=== PATIENT | female | born 1980 | race Hispanic/Latino ===

== ENCOUNTER 2021-11-16 21:04 | Emergency (ER) | payer OTHER ==
[~2021-11-16] VITALS: Ht 162.6 cm; Wt 63.0 kg
[2021-11-16] MEDS ORDERED: LACTULOSE 20 GM/30 ML UDCUP PO ONE (22:00)
[2021-11-16] MEDS ORDERED: GLYCERIN ADULT SUPP.RECT RC SCH (22:00)
[2021-11-16] MEDS ORDERED: LACT10PA5 PO (23:17)
[2021-11-16] MEDS ORDERED: POLY17PO4 PO (23:17)
[2021-11-16 23:20] VITALS: BP 135/65
== END 2021-11-16 23:31 | disposition home or self-care (01) ==
LOC: EDH 21:04
DX: K59.01 Slow transit constipation (principal); J45.909 Unspecified asthma, uncomplicated; E03.9 Hypothyroidism, unspecified; Z90.49 Acquired absence of other specified parts of digestive tract; Z90.710 Acquired absence of both cervix and uterus; Z98.51 Tubal ligation status

== ENCOUNTER → 2022-04-20 | Outpatient (CLI) | payer OTHER ==
[~2022-04-20] MED LIST: LACT10PA5 PO; POLY17PO4 PO
== END | disposition home or self-care (01) ==
LOC: RAH 14:53
PROVIDERS: ATTEND Family Medicine
DX: Z12.31 Encounter for screening mammogram for malignant neoplasm of breast (principal)
CPT/HCPCS: 77067

== ENCOUNTER 2024-07-13 20:48 | Emergency (ER) | payer OTHER ==
[~2024-07-13] VITALS: Ht 162.6 cm; Wt 69.4 kg
[2024-07-13] MEDS: DiphenhydrAMINE HCL 50 MG/ML VIAL IV ONE (21:20)
[2024-07-13] MEDS: metoCLOPRAmide 10 MG/2 ML VIAL IVP ONE (21:21)
[2024-07-13] MEDS: 0.9%NACL 1000ML 1,000 ML IV ONE (21:22)
[2024-07-13] MEDS: acetaMINOPHEN 500 MG TABLET PO ONE (21:23)
[2024-07-13 21:34] LABS: BASOPHILS # (AUTO) 0.05 K/uL (0.00-0.20); BASOPHILS % (AUTO) 0.6 % (0.0-5.0); EOSINOPHILS # (AUTO) 0.15 K/uL (0.00-0.70); EOSINOPHILS % (AUTO) 1.9 % (0.0-8.0); HEMATOCRIT 41.6 % (36-48); IMMATURE GRANULOCYTE ABSOLUTE 0.02 K/uL (0-1); LYMPHOCYTES # (AUTO) 2.2 K/uL (1.0-4.8); LYMPHOCYTES % (AUTO) 27.9 % (21.0-51.0); MEAN CORPUSCULAR HGB CONC 34.1 g/dL (32.0-36.0); MEAN CORPUSCULAR VOLUME 93.7 fL (79-99); MONOCYTES # (AUTO) 0.7 K/uL (0.1-1.0); MONOCYTES % (AUTO) 8.7 % (3.0-13.0); NEUTROPHILS # (AUTO) 4.8 K/uL (1.8-7.7); NEUTROPHILS % (AUTO) 60.6 % (40.0-77.0); PLATELET COUNT (AUTO) 300 K/uL (130-400); RED BLOOD CELL COUNT(AUTO) 4.44 MIL/uL (4.00-5.50); RED CELL DISTRIBUTION WIDTH 12.5 % (11.0-15.5); WHITE BLOOD COUNT (AUTO) 7.9 K/uL (4.8-10.8)
--- NOTE | 2024-07-13 21:37 | HMCIMG ---
CT HEAD/BRAIN W/O CONTRAST CLINICAL HISTORY: occipital headache COMPARISON: None TECHNIQUE: Multiple sequential axial images of the head were obtained from the base of the skull through vertex. CT was performed with one or more of the following dose reduction techniques: automated exposure control, adjustment of the mA and/or kV according to patient size, or use of iterative reconstruction technique FINDINGS: The brain parenchyma and CSF spaces are unremarkable. The orbital contents, paranasal sinuses and mastoid air cells are within normal limits. The calvarium is intact. IMPRESSION: Normal study
[2024-07-13 21:42] LABS: CREATININE 1.1 mg/dL (0.5-1.0); POTASSIUM 3.8 mmol/L (3.5-5.1)
--- NOTE | 2024-07-13 22:21 | ERN ---
ED Note History of Present Illness Stated Complaint: HEADACHE Chief Complaint: Headache Time Seen by MD: 20:52 Time Seen by Midlevel: 20:52 Dictation: The patient is a 43-year-old female with a history of migraine headaches on sumatriptan , hysterectomy, asthma who presents to the emergency department with a occipital head pain associated with nausea onset this morning. Patient reports she took two of her sumatriptan with no relief. Reports this feels like her migraine headache but it is now worse than other headaches. Patient denies any fever, denies any head trauma. Allergies: Coded Allergies: azithromycin (Unverified Allergy, Unknown, 11/16/21) Home Meds Active Scripts Polyethylene Glycol 3350 (Miralax) 17 Gm Powd.pack, 17 GM PO BID, #333 GM Prov:DEJAN HARMAN 11/16/21 Lactulose (Lactulose) 10 Gm Packet, 10 GM PO DAILY, #30 PKT Prov:DEJAN HARMAN 11/16/21 Past Medical History Past Medical History: Asthma, Hypothyroid, Migraines, Other Additional Past Medical Hx: HX OF HPYLORI Surgical History: Appendectomy, Hysterectomy Surgical History Other: TUBAL LIGATION Family History: Negative Social History: Lives with family RN Note Reviewed/Agreed w/PFSH: Yes Review of System Dictation Constitutional: Negative for fever,chills, and weight loss Eyes: Negative for injury, pain,redness, and discharge ENT: Negative for injury,pain or swelling Cardiovascular: Negative for chest pain, palpitations, and edema Respiratory: Negative for shortness of breath, cough, and wheezing, Abdomen/GI: Negative for abdominal pain, vomiting, diarrhea, and constipation positive for nausea Back: Negative for injury and pain : Negative for injury, bleeding and discharge MS/Extremity: Negative for injury and deformity Skin: Negative for rash, and discoloration Neuro: Negative for weakness, numbness, tingling, and seizure positive for headache Psych: Negative for suicide ideation, homicidal ideation, and hallucinations Initial Vital Sign VS Vital Signs Date Time Temp Pulse Resp B/P (MAP) Pulse Ox O2 Delivery O2 Flow Rate FiO2 07/13/24 20:49 98.1 78 16 150/95 100 Room Air 07/13/24 21:20 0 21 Physical Exam Dictation Vital Signs reviewed General Appearance: Alert, oriented x 3, no acute distress, well developed, nourished. Head and Face: non-traumatic. Eyes: PERRL, pink conjunctivas, eyelid no trauma, anterior chamber with arcus senilis. Ears: Pinnas intact and no signs of trauma or erythema ear canals clear and no discharge TM no erythema Nose: No discharge, no bleeding. Oropharynx: Mouth normal, tongue pink. pharynx clear,no erythema, tonsils no exudates, no abscesses noted, mucous membrane moist Neck: Supple, non-tender, no thyromegaly, no masses, no JVD, no bruits Breast:Deferred Chest:No tenderness, no crepitus, no paradoxical movement, no retractions Lungs:Clear, well-ventilated, symmetric, no rales, no wheezing, no rhonchi, no stridor, good breath sounds bilaterally Heart: Regular rate, regular rhythm, no murmur, no gallops Vascular: no peripheral edema, Abdomen: Soft, positive bowel sounds, nondistended, no guarding, nontender, no rebound, no masses no hepatomegaly, no splenomegaly, no Noriega's sign, no hernias. Rectal: Deferred Genital: Deferred Neurological: Normal speech, motor function intact, sensory function intact , upper extremities equal in strength, lower extremities equal in strength, no facial droop Musculoskeletal: Neck nontender, full range of motion, back nontender, full range of motion, Extremities: nontender, full range of motion Skin: Color pink, dry, no turgor, no rash, no lacerations, no abrasions, no contusions. Lymphatic: Deferred Results (Laboratory/Radiology) Laboratory/Radiology Laboratory Tests Test 07/13/24 21:14 White Blood Count 7.9 K/uL (4.8-10.8) Red Blood Count 4.44 MIL/uL (4.00-5.50) Hemoglobin 14.2 g/dL (12.0-16.0) Hematocrit 41.6 % (36-48) Mean Corpuscular Volume 93.7 fL (79-99) Mean Corpuscular Hemoglobin 32.0 pg (27.0-33.0) Mean Corpuscular Hemoglobin Concent 34.1 g/dL (32.0-36.0) Red Cell Distribution Width 12.5 % (11.0-15.5) Platelet Count 300 K/uL (130-400) Mean Platelet Volume 11.3 fL (7.5-10.5) H Immature Granulocyte % (Auto) 0.3 % (0-1) Neutrophils (%) (Auto) 60.6 % (40.0-77.0) Lymphocytes (%) (Auto) 27.9 % (21.0-51.0) Monocytes (%) (Auto) 8.7 % (3.0-13.0) Eosinophils (%) (Auto) 1.9 % (0.0-8.0) Basophils (%) (Auto) 0.6 % (0.0-5.0) Neutrophils # (Auto) 4.8 K/uL (1.8-7.7) Lymphocytes # (Auto) 2.2 K/uL (1.0-4.8) Monocytes # (Auto) 0.7 K/uL (0.1-1.0) Eosinophils # (Auto) 0.15 K/uL (0.00-0.70) Basophils # (Auto) 0.05 K/uL (0.00-0.20) Absolute Immature Granulocyte (auto 0.02 K/uL (0-1) Nucleated Red Blood Cells 0.0 % (0.0-0.19) Sodium Level 145 mmol/L (136-145) Potassium Level 3.8 mmol/L (3.5-5.1) Chloride Level 107 mmol/L (101-111) Carbon Dioxide Level 31 mmol/L (21-32) Blood Urea Nitrogen 12 mg/dL (7-18) Creatinine 1.1 mg/dL (0.5-1.0) H Glomerular Filtration Rate Calc 64 mL/min (>90) Random Glucose 105 mg/dL (70-105) Total Calcium 9.5 mg/dL (8.5-10.1) REASON: occipital headache ORDERING PHYSICIAN: INDY MARQUEZ PROCEDURE: HEAD WO - CT HEAD/BRAIN W/O CONTRAST CT HEAD/BRAIN W/O CONTRAST CLINICAL HISTORY: occipital headache COMPARISON: None TECHNIQUE: Multiple sequential axial images of the head were obtained from the base of the skull through vertex. CT was performed with one or more of the following dose reduction techniques: automated exposure control, adjustment of the mA and/or kV according to patient size, or use of iterative reconstruction technique FINDINGS: The brain parenchyma and CSF spaces are unremarkable. The orbital contents, paranasal sinuses and mastoid air cells are within normal limits. The calvarium is intact. IMPRESSION: Normal study Labs Reviewed?: Yes ED Course ED Course Orders Procedure Category Date Status Time Cbc With Differential LAB 07/13/24 Complete 21:04 0.9%Nacl 1000ml (Ns PHA 07/13/24 Complete 1000ml) 21:30 Basic Metabolic Panel LAB 07/13/24 Complete 21:04 Ct Head/Brain W/O CT 07/13/24 Resulted Contrast 21:04 Metoclopramide 10 PHA 07/13/24 Complete Mg/2 Ml Vial (Reglan 1 21:30 Diphenhydramine Hcl PHA 07/13/24 Complete (Benadryl Inj) 21:30 Acetaminophen 500mg PHA 07/13/24 Complete Tab (Tylenol 500mg T 21:30 Current Medications Medications (Trade) Dose Ordered Sig/Lois Route PRN Reason Start Time Stop Time Status Last Admin Dose Admin Acetaminophen (TYLenol 500MG TAB) 1,000 mg ONCE ONCE PO 07/13/24 21:30 07/13/24 21:31 DC 07/13/24 21:23 Diphenhydramine HCl (BENAdryl INJ) 25 mg ONCE ONCE IV 07/13/24 21:30 07/13/24 21:31 DC 07/13/24 21:20 Metoclopramide HCl (regLAN 10MG IV) 10 mg ONCE ONCE IVP 07/13/24 21:30 07/13/24 21:31 DC 07/13/24 21:21 Sodium Chloride 1,000 ml @ 0 mls/hr ONCE ONCE IV 07/13/24 21:30 07/13/24 21:31 DC 07/13/24 21:22 Vital Signs Date Time Temp Pulse Resp B/P (MAP) Pulse Ox O2 Delivery O2 Flow Rate FiO2 07/13/24 21:20 98.2 72 17 141/85 97 Room Air* 0 21 07/13/24 20:49 98.1 78 16 150/95 100 Room Air Medical Decision Making MDM The patient is a 43-year-old female with a history of migraine headaches on sumatriptan , hysterectomy, asthma who presents to the emergency department with a occipital head pain associated with nausea onset this morning. Patient reports she took two of her sumatriptan with no relief. Reports this feels like her migraine headache but it is now worse than other headaches. Patient denies any fever, denies any head trauma., dehydration CBC showed no leukocytosis, no anemia, mildly elevated creatinine, no electrolyte imbalance. CT head showed no acute pathology. Patient received a L of IV fluids in ER. Received Benadryl and Reglan, Tylenol which improved her pain. Patient continues neurologically intact, stable vital signs. We will be discharged to follow up with PCP. Differential diagnosis: Migraine headache, intracerebral hemorrhage, subarachnoid hemorrhage Need for hospitalization: Patient does not meet criteria for hospitalization. There are no social concerns with this patient. DX & DISP Disposition: Discharge Departure Impression: Primary Impression: Migraine headache Condition: Stable Additional Instructions: Please follow up with the primary doctor in 1-2 days. Continue oral hydration at home. If symptoms worsen please return to ER. FOLLOW-UP WITH PRIMARY CARE PROVIDER IN 1 TO 2 DAYS. TAKE MEDICATIONS DIRECTED HERE IN THE EMERGENCY ROOM. OKAY TO CONTINUE HOME MEDICATIONS UNLESS OTHERWISE DISCUSSED DURING YOUR VISIT IN THE EMERGENCY ROOM TODAY. RETURN TO YOUR NEAREST EMERGENCY ROOM IF SYMPTOMS WORSEN OR IF THERE IS NO IMPROVEMENT. CALL 911 IF YOU NEED IMMEDIATE ASSISTANCE. TAKE TYLENOL OR MOTRIN [id number] NEEDED AND IF NO CONTRAINDICATIONS ARE PRESENT. INCREASE ORAL HYDRATION. A WOUND CULTURE OR URINE CULTURE WAS ORDERED HERE IN THE EMERGENCY ROOM DEPARTMENT PLEASE FOLLOW-UP WITH PRIMARY CARE PROVIDER AND ADVISE THEM TO GET REPEAT PORTS FROM OUR FACILITY. IF YOU HAD ANY CHARLES WRAP/SPLINTS THAT WERE APPLIED HERE, PLEASE DO NOT REMOVE THEM UNTIL YOU SEE YOUR PRIMARY CARE OR SPECIALTY. Referrals: MICHELLE KEATING MD (PCP) Time of Disposition: 22:20 I have reviewed the case, and I agree with, Diagnosis and Plan INDY MARQUEZ July 13, 2024 22:21
[2024-07-13 22:45] VITALS: BP 136/82; PULSE 74; RESP 16; TEMP 98.2; O2SAT 98
== END 2024-07-13 22:49 | disposition home or self-care (01) ==
LOC: EDH 20:48
DX: G43.909 Migraine, unspecified, not intractable, without status migrainosus (principal); E03.9 Hypothyroidism, unspecified; J45.909 Unspecified asthma, uncomplicated; Z88.1 Allergy status to other antibiotic agents; Z90.49 Acquired absence of other specified parts of digestive tract; Z90.710 Acquired absence of both cervix and uterus
CPT/HCPCS: 99285; 96374; 70450; 96361; 96375; 80048; 85025; 36415; J1200; J7030; J2765

== ENCOUNTER → 2024-09-07 | Outpatient (CLI) | payer OTHER | END | disposition home or self-care (01) | LOC: RAH 13:01 | PROVIDERS: ATTEND Family Medicine | DX: Z12.31 Encounter for screening mammogram for malignant neoplasm of breast (principal) | CPT/HCPCS: 77067 ==

== ENCOUNTER 2024-10-13 13:59 | Emergency (ER) | payer OTHER ==
[~2024-10-13] VITALS: Ht 162.6 cm; Wt 69.4 kg
[2024-10-13] MEDS: MAGNESIUM CITRATE 296 ML SOLUTION PO ONE (14:56)
[2024-10-13] MEDS ORDERED: DOCU-116 PO (15:43)
[2024-10-13] MEDS ORDERED: POLY17PO4 PO (15:43)
--- NOTE | 2024-10-13 15:44 | NUR ---
pt had a bowel movement
--- NOTE | 2024-10-13 15:46 | ERN ---
General Chief Complaint: Constipation Stated Complaint: CONSTIPATED Time Seen by MD: 14:04 Time Seen by Midlevel: 14:04 Source: patient History of Present Illness Initial Comments The patient is a 43-year-old female with a past medical history of chronic constipation presenting to the emergency department for evaluation of constipation. Her last bowel movement was a proximally two days ago. She reports similar episodes in the past. She has been taking lactulose with little to no relief. She does admit to still passing gas. Denies any previous abdominal surgeries or history of bowel l obstructions. Allergies: Coded Allergies: azithromycin (Unverified Allergy, Unknown, 11/16/21) Home Meds Active Scripts Polyethylene Glycol 3350 (Miralax) 17 Gm Powd.pack, 17 GM PO BID, #333 GM Prov:DEJAN HARMAN 11/16/21 Lactulose (Lactulose) 10 Gm Packet, 10 GM PO DAILY, #30 PKT Prov:DEJAN HARMAN 11/16/21 Past Medical History Past Medical History: Hypothyroid, Other Medical History Other: MIGRANES Past Surgical History: Appendectomy, Other Surgical History Other: FINGER SX, PARTIAL HYSTERECTOMY, TUBAL LIGATION Family History Family History: Negative Social History Social History: Lives with family ROS Dictation CONSTITUTIONAL: Negative except for HPI HEAD/FACE: Negative except for HPI EENT: Negative except for HPI RESPIRATORY: Negative except for HPI GASTROINTESTINAL/ABDOMINAL: Negative except for HPI GENITOURINARY: Negative except for HPI MUSCULOSKELETAL: Negative except for HPI INTEGUMENTARY: Negative except for HPI NEUROLOGICAL/PSYCH: Negative except for HPI HEMATOLOGIC/LYMPHATIC: Negative except for HPI All Systems Negative, Except as noted above. 13 point review of systems assessed and all negative except for above. Physical Exam Physical Exam Dictation Vital Signs reviewed General Appearance: Alert, oriented x 3, no acute distress, well developed, nourished. Head and Face: non-traumatic. Eyes: PERRL, pink conjunctivas, eyelid no trauma, anterior chamber with arcus senilis. Ears: Pinnas intact and no signs of trauma or erythema ear canals clear and no discharge TM no erythema Nose: No discharge, no bleeding. Oropharynx: Mouth normal, tongue pink, pharynx clear,no erythema, tonsils no exudates, no abscesses noted, mucous membrane moist Neck: Supple, non-tender, no thyromegaly, no masses, no JVD, no bruits Breast:Deferred Chest:No tenderness, no crepitus, no paradoxical movement, no retractions Lungs:Clear, well-ventilated, symmetric, no rales, no wheezing, no rhonchi, no stridor, good breath sounds bilaterally Heart: Regular rate, regular rhythm, no murmur, no gallops Vascular: no peripheral edema, Abdomen: Soft, positive bowel sounds, nondistended, no guarding, nontender, no rebound, no masses no hepatomegaly, no splenomegaly, no Noriega's sign, no hernias. Rectal: Deferred Genital: Deferred Neurological: Normal speech, motor function intact, sensory function intact Musculoskeletal: Neck nontender, full range of motion, back nontender, full range of motion, Extremities: nontender, full range of motion Skin: Color pink, dry, no turgor, no rash, no lacerations, no abrasions, no contusions. Lymphatic: Deferred MDM MDM: 43-year-old female with a history of chronic constipation presents to the ER with constipation. On exam the patient is in no acute distress. No episodes of emesis. Patient was given magnesium citrate and Fleet enema and was able to have a bowel movement. Patient will be discharged home with supportive management Differential diagnosis: Constipation, bowel obstruction There are no social concerns with this patient. Prescription drug management Prescriptions will include: Colace and MiraLax Medical management and examination interpretation discussions were had by me with other qualified healthcare professionals as indicated for the patient's care. ED Course Orders Procedure Category Date Status Time Magnesium Citrate PHA 10/13/24 Complete (Magnesium Citrate) 14:30 *Nursing CPOE 10/13/24 Transmitted Communication: 14:08 Current Medications Medications (Trade) Dose Ordered Sig/Lois Route PRN Reason Start Time Stop Time Status Last Admin Dose Admin Magnesium Citrate (Magnesium Citrate) 296 ml ONCE ONCE PO 10/13/24 14:30 10/13/24 14:31 DC 10/13/24 14:56 Vital Signs Date Time Temp Pulse Resp B/P (MAP) Pulse Ox O2 Delivery O2 Flow Rate FiO2 10/13/24 14:01 98.2 95 18 130/95 97 Room Air 0 DX & DISP Disposition: Discharge Departure Impression: Primary Impression: Constipation Condition: Stable Scripts Polyethylene Glycol 3350 (Miralax) 17 Gram Powd.pack 17 GM PO DAILY for constipation, #20 PACKET 0 Refills Prov: JEFFREY RODRIGUEZ 10/13/24 Docusate Sodium (Colace) 100 Mg Capsule 100 MG PO TID for constipation, #30 CAP 0 Refills Prov: JEFFREY RODRIGUEZ 10/13/24 Referrals: MICHELLE KEATING MD (PCP) Time of Disposition: 15:43 I have reviewed the case, and I agree with, Diagnosis and Plan I performed the substantive portion of the visit. I have reviewed and personally made and approve the management plan that is documented in the note by myself or the SUDHEER. I acknowledge for responsibility for the patient's man agement plan. JEFFREY RODRIGUEZ Oct 13, 2024 15:46
[2024-10-13 15:50] VITALS: BP 121/87; PULSE 85; RESP 18; TEMP 98.2; O2SAT 97
== END 2024-10-13 15:52 | disposition home or self-care (01) ==
LOC: EDH 13:59
DX: K59.00 Constipation, unspecified (principal); E03.9 Hypothyroidism, unspecified; Z88.1 Allergy status to other antibiotic agents; Z90.49 Acquired absence of other specified parts of digestive tract; Z90.711 Acquired absence of uterus with remaining cervical stump; Z98.51 Tubal ligation status
CPT/HCPCS: 99282; 99284